=== PATIENT | female | born 1995 | race African-American/Black ===

== ENCOUNTER 2020-09-19 12:38 | Emergency (ER) | payer MEDICAID ==
[~2020-09-19] VITALS: Ht 162.6 cm; Wt 83.9 kg
--- NOTE | 2020-09-19 13:19 | Emergency Room Report ---
History of Present Illness General Chief Complaint: Eye Problems Source: Patient Present Illness HPI 24-year-old female with no significant past medical history here complaining of over 1 month of a stye on left upper eyelid that is minimizing in size. Denies any pus drainage, redness of the conjunctiva. Denies any trauma to the eye. Denies any blurry vision or photophobia. Patient reports that it started after she applied some new fake lashes. Has not been applying any eye make-up since. Also patient reports her last menstrual period was beginning of August 2020 and would like to be checked for . Patient reports that she was last sexually active about 3 weeks ago without condom use or any control. Patient reports that she has had 5 D&Cs in the past and is asking me if it will be covered by her insurance to have another D&C. Patient also asked me about the odell of erythromycin ointment. Patient constantly on her phone as I am examining her. Denies any abdominal pain, vaginal bleeding or spotting. Patient showed me a month ago she had erythema around left upper eyelid and now is subsiding Allergies: Coded Allergies: No Known Allergies (Unverified , 09/19/20) COVID-19 Screening Contact w/high risk pt: No Experienced COVID-19 symptoms?: No COVID-19 Testing performed [employer]: Yes COVID-19 Screening: Negative COVID-19 COVID-19 Testing Source: [facility] Patient History Past Medical History: see triage record Past Surgical History: none Pertinent Family History: none Last Menstrual Period: 08/19/20 Now: No Immunizations: UTD Reviewed Nursing Documentation: PMH: Agreed; PSxH: Agreed Nursing Documentation-PMH Past Medical History: No History, Except For Review of Systems All Other Systems: negative except mentioned in HPI Physical Exam Vital Signs Date Time Temp Pulse Resp B/P (MAP) Pulse Ox O2 Delivery O2 Flow Rate FiO2 09/19/20 12:59 98.1 103 16 127/78 (94) 98 Room Air Sp02 EP Interpretation: reviewed, normal General Appearance: no apparent distress, alert, GCS 15, non-toxic Head: normocephalic, atraumatic Eyes: left eye other - Stye upper eyelid; bilateral eye PERRL ENT: hearing grossly normal, normal pharynx, no angioedema, normal voice Neck: full range of motion, supple/symm/no masses Respiratory: chest non-tender, lungs clear, normal breath sounds, speaking full sentences Cardiovascular #1: regular rate, rhythm, no edema Gastrointestinal: normal bowel sounds, non tender, soft, non-distended, no guarding, no rebound Rectal: deferred Genitourinary: no CVA tenderness Musculoskeletal: back normal Neurologic: alert, motor strength/tone normal, oriented x3, sensory intact, responsive, speech normal Psychiatric: judgement/insight normal, memory normal, mood/affect normal, no suicidal/homicidal ideation Skin: no rash Lymphatic: no adenopathy Medical Decision Making PA Attestation All diagnoses and treatment plans were reviewed and discussed with my supervising physician Dr. Peña Diagnostic Impression: Primary Impression: Hordeolum of upper eyelid Additional Impression: Positive test ER Course 24-year-old female with no significant past medical history here complaining of over 1 month of a stye on left upper eyelid that is minimizing in size. Denies any pus drainage, redness of the conjunctiva. Denies any trauma to the eye. Denies any blurry vision or photophobia. Patient reports that it started after she applied some new fake lashes. Has not been applying any eye make-up since. Also patient reports her last menstrual period was beginning of August 2020 and would like to be checked for . Patient reports that she was last sexually active about 3 weeks ago without condom use or any control. Patient reports that she has had 5 D&Cs in the past and is asking me if it will be covered by her insurance to have another D&C. Patient also asked me about the odell of erythromycin ointment. Patient constantly on her phone as I am examining her. Denies any abdominal pain, vaginal bleeding or spotting. Patient showed me a month ago she had erythema around left upper eyelid and now is subsiding Ddx considered but are not limited to: bacterial conjunctivitis, allergic conjunctivitis, viral conjunctivitis, periorbital cellulitis, global trauma, stye, chalazion Vital signs: are WNL, pt. is afebrile H&PE are most consistent with: Stye left upper eyelid, incidental finding of positive urine test ORDERS: Urine , erythromycin ophthalmic ointment ED INTERVENTIONS: None required at this time. DISCHARGE: At this time pt. is stable for d/c to home. Will provide printed patient care instructions, and any necessary prescriptions. Care plan and follow up instructions have been discussed with the patient prior to discharge. Patient take medication as directed, follow-up with [facility], gave a list of women's clinic for patient to follow-up with, did not want to started on a prescription for vitamins that she wants to abort and terminate the . Advi sed patient return to emergency room if worsening symptoms. At this time no further evaluation regarding continued patient denies any abdominal pain vaginal bleeding or spotting. Last Vital Signs Date Time Temp Pulse Resp B/P (MAP) Pulse Ox O2 Delivery O2 Flow Rate FiO2 09/19/20 12:59 98.1 103 16 127/78 (94) 98 Room Air Disposition: HOME, SELF-CARE Condition: Stable Scripts Erythromycin Base (Erythromycin) 1 Gm Oint...g. 1 GM OP Q6HR for 5 Days, #3.5 GM 5% ophthalmic oint Prov: Renetta Livingston 09/19/20 Referrals: NOT CHOSEN [facility]/MD,REFERRING (PCP) Patient Instructions: Serafin Additional Instructions: Take medication as directed, follow with your primary care provider, worsening symptoms return to the emergency room Your urine test is positive you need to follow-up with [facility] at this time no further evaluation is needed in the ED as you do not have any abdominal pain or vaginal bleeding or spotting. Renetta Livingston Sep 19, 2020 13:19
[2020-09-19] MEDS ORDERED: ERYTHROMYCIN1 G1 OP (13:21)
--- NOTE | 2020-09-19 13:21 | NUR ---
ED Nurse Note:urine sent to labs
--- NOTE | 2020-09-19 14:05 | NUR ---
ED Nurse Note: Pt cleared by health care Provider for discharge. DC instructions/prescription was given and explained to pt and verbalized understanding of teachings. All medical deviecs such as ID band removed. Pt is AAO x4, ambulatory and left with all personal belongings.
[2020-09-19 14:23] VITALS: BP 127/78
== END 2020-09-19 14:05 | disposition home or self-care (01) ==
LOC: EMR 13:10
DX: H00.014 Hordeolum externum left upper eyelid (principal); Z32.01 Encounter for pregnancy test, result positive
CPT/HCPCS: 81025; Z7502; 99283

== ENCOUNTER 2020-10-03 22:29 | Emergency (ER) | payer MEDICAID ==
[~2020-10-03] VITALS: Ht 162.6 cm; Wt 90.7 kg
[~2020-10-03 22:29] MED LIST: ERYTHROMYCIN1 G1 OP
--- NOTE | 2020-10-03 22:30 | NUR ---
ED Nurse Note: walked in to ed c/o sinus congestion accompanied by earache onset 1.5 wks ago. denies cough or fever. pt states she is 8wks . vss, nad, aaox4, ambulatory, droplet precaution observed
[2020-10-03 22:49] VITALS: BP 134/73
[2020-10-03] MEDS ORDERED: Augmentin 875mg Tab ORAL ONE (23:00)
[2020-10-03] MEDS ORDERED: PSEUDOEPHEDRINE60 MG PO (23:01)
[2020-10-03] MEDS ORDERED: AMOXICILLIN500 MG ORAL (23:01)
--- NOTE | 2020-10-03 23:02 | Emergency Room Report ---
History of Present Illness General Chief Complaint: Earache Source: Patient Present Illness [facility] This is a 25-year-old female with no significant past medical history. She presents with chief complaint of runny nose and ear pain. She says she was very congested week and a half ago. Now is occasionally congested and running. In the last few days her right ear started hurting. [employer] like there is fluid there . It hurts more when she leaned forward. No fever or chills. No nausea no vomiting. No cough. Pain is 7 out of 10. Allergies: Coded Allergies: No Known Allergies (Unverified , 09/19/20) COVID-19 Screening Contact w/high risk pt: No Experienced COVID-19 symptoms?: Yes COVID-19 Testing performed [employer]ACILITY SERVICE ASSOCIATE: No Patient History Past Medical History: see triage record, old chart reviewed Past Surgical History: none Pertinent Family History: none Social History: Denies: smoking Now: Yes - 8wks Immunizations: other Reviewed Nursing Documentation: PMH: Agreed; PSxH: Agreed Nursing Documentation-PMH Past Medical History: No Stated History Review of Systems Eye: Denies: eye pain, blurred vision ENT: Reports: ear pain, nose congestion; Denies: throat swelling Respiratory: Denies: cough, shortness of breath Cardiovascular: Denies: chest pain, palpitations Gastrointestinal: Denies: abdominal pain, diarrhea, nausea, vomiting Musculoskeletal: Denies: back pain, joint pain Skin: Denies: rash Neurological: Denies: headache, numbness Endocrine: Denies: increased thirst, increased urine Hematologic/Lymphatic: Denies: easy bruising All Other Systems: negative except mentioned in HPI Physical Exam Vital Signs Date Time Temp Pulse Resp B/P (MAP) Pulse Ox O2 Delivery O2 Flow Rate FiO2 10/03/20 22:30 98.2 98 18 134/73 (93) 98 Room Air Vitals normal Sp02 EP Interpretation: reviewed, normal General Appearance: well appearing, no apparent distress, alert Head: normocephalic, atraumatic Eyes: bilateral eye PERRL, bilateral eye EOMI ENT: hearing grossly normal, normal pharynx, other - Left TM is normal. Right TM is bulging and dull. Neck: full range of motion, supple, no meningismus Respiratory: chest non-tender, lungs clear, normal breath sounds Cardiovascular #1: regular rate, rhythm, no murmur Gastrointestinal: normal bowel sounds, non tender, no mass, no organomegaly, no bruit, non-distended Musculoskeletal: back normal, normal range of motion, gait/station normal Psychiatric: mood/affect normal Medical Decision Making Diagnostic Impression: Primary Impression: URI (upper respiratory infection) Qualified Codes: J00 - Acute nasopharyngitis [common cold] Additional Impression: Acute otitis media with effusion of right ear ER Course This patient presents with viral symptoms with secondary otitis media with effusion. She looks well. No evidence of any sepsis, pneumonia, mastoiditis edema few. Last Vital Signs Date Time Temp Pulse Resp B/P (MAP) Pulse Ox O2 Delivery O2 Flow Rate FiO2 10/03/20 22:49 98.2 98 18 134/73 98 Room Air Status: improved Disposition: HOME, SELF-CARE Condition: Stable Scripts Amoxicillin* (AMOXIL*) 500 Mg Capsule 500 MG ORAL THREE TIMES A DAY, #21 CAP Prov: Kulwinder Dey MD 10/03/20 Pseudoephedrine Hcl* (SUDAFED*) 60 Mg Tablet 60 MG PO Q6H, #30 TAB Prov: Kulwinder Dey MD 10/03/20 Referrals: NOT CHOSEN [facility]/,REFERRING (PCP) Patient Instructions: Otitis Media, Adult, [id number] Additional Instructions: Follow-up with your doctor in 7 days. Return if symptoms worsen. Kulwinder Dey MD Oct 03, 2020 23:02
[2020-10-03] MEDS ORDERED: Augmentin 875mg Tab ONE (23:03)
[2020-10-03 23:07] VITALS: BP 129/87
--- NOTE | 2020-10-03 23:07 | NUR ---
ER DISCHARGE NOTE: Patient is cleared to be discharged per ERMD, pt is aox4, on room air, with stable vital signs. pt was given dc instructions, pt was able to verbalize understanding, pt id band removed without complications. pt is able to ambulate with steady gait. pt took all belongings.
== END 2020-10-03 23:07 | disposition home or self-care (01) ==
LOC: EMR 22:57
DX: J00 Acute nasopharyngitis [common cold] (principal); H65.191 Other acute nonsuppurative otitis media, right ear; Z33.1 Pregnant state, incidental
CPT/HCPCS: 99282